=== PATIENT | female | born 1970 | race Two or more races ===

== ENCOUNTER → 2025-01-27 | Outpatient (CLI) | payer BC, SELFPAY ==
--- NOTE | 2025-01-27 16:48 | XR_ITS ---
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 R2 computer aided detection program utilized for evaluation of suspicious masses and/or abnormal calcifications. 3-D Tomosynthesis images obtained. Findings: The breasts are heterogeneously dense, which may obscure small masses Large focus suspicious microcalcifications upper outer quadrant left breast with increased radiodensity, masslike area in the upper outer quadrant at least 3 cm Subtle skin thickening left breast Impression: BI-RADS Category 4: Suspicious for malignancy Solid masslike area 12 to 1 o'clock position left breast retroareolar, please see the left breast sonogram report today indicating suspicious mass in this position, biopsy of this mass is needed under ultrasound guidance to confirm breast malignancy Also recommend follow-up magnification spot compression films of the suspicious microcalcifications upper outer quadrant left breast
--- NOTE | 2025-01-27 16:48 | XR_ITS ---
Examination: Breast ultrasound, unilateral, left complete Date and time of exam: January 27, 2025, 1656 hours INDICATIONS: Patient states palpable lump left breast 12 o'clock position noticed beginning yesterday Technique: Real-time pantoja scale ultrasonographic imaging performed left breast including all 4 quadrants as well as nipple retroareolar and axillary region. Findings: 12:00 retroareolar mass indistinct irregular margins 28 x 18 x 17 mm 2:00 nodule circumscribed 6 x 7 mm 3:00 nodule partially indistinct margins 6 x 10 mm 7:00 nodule with partially indistinct margins 6 x 7 mm Abnormal left axillary lymph nodes with architectural distortion IMPRESSION: BI-RADS Category 4: Suspicious for malignancy Suspicious nodules 12:00, 3:00 7 o'clock position left breast Suspicious axillary lymph nodes Biopsy of the 3 breast nodules and at least one axillary lymph node dated to confirm carcinoma
== END | disposition home or self-care (01) ==
LOC: CDIM 16:41
PROVIDERS: PCP Family Medicine; Referring Provider Student in an Organized Health Care Education/Training Program; Visit Provider Student in an Organized Health Care Education/Training Program
DX: N63.25 Unspecified lump in the left breast, overlapping quadrants (principal); N63.21 Unspecified lump in the left breast, upper outer quadrant; R92.0 Mammographic microcalcification found on diagnostic imaging of breast
CPT/HCPCS: 76641; 77062; 77066; G0279